=== PATIENT | female | born 1955 | race Caucasian/White ===

== ENCOUNTER → 2016-08-26 | Outpatient (CLI) | payer OTHER | END | disposition home or self-care (01) | LOC: C.LABPBG 11:12 | PROVIDERS: ATTEND Neuromusculoskeletal Medicine & OMM | DX: Z00.00 Encounter for general adult medical examination without abnormal findings (principal) ==

== ENCOUNTER 2019-05-15 07:40 | Observation (INO) ==
--- NOTE | 2019-05-08 15:38 | PAT Medication Instructions ---
Medication Instructions Date of Service May 08, 2019 Home Medications aspirin [Aspirin Low Dose] 81 mg PO QPM atorvastatin 40 mg PO QPM triamcinolone acetonide 1 appln TOPICAL DAILY PRN ASK your prescriber and surgeon aspirin [Aspirin Low Dose] 81 mg PO QPM STOP taking 24 hours before surgery triamcinolone acetonide 1 appln TOPICAL DAILY PRN Take evening before surgery atorvastatin 40 mg PO QPM Other Notes If you have any questions please call us at [phone] or [phone] or [phone] or [phone]
--- NOTE | 2019-05-09 08:23 | Anesthesiology Consultation ---
Date of Service May 09, 2019 Assessment & Plan (1) Encounter for pre-operative examination: Chart Review Chart Review: Acceptable Risk for Surgery and Patient seen in Pre Admission Testing Teaching & Discussion Instructed NPO after midnight before surgery, except medications with 15 cc of water. Medication instructions provided according to the PAT guidelines. History Surgery Operation Date: 05/15/19 07:00 Proposed Procedures p Left Breast Lumpectomy with Needle Localization and Left [place] Lymph Node Biopsy - German Otero MD, FACS Height/Weight Height: 5 ft Weight: 74.9 kg Allergies Allergy/AdvReac Type Severity Reaction Status Date / Time No Known Drug Allergies Allergy Verified 05/03/19 15:18 Medications Home Medications Medication Instructions Recorded Confirmed Last Taken aspirin [Aspirin Low Dose] 81 mg PO QPM 05/03/19 05/03/19 Unknown atorvastatin 40 mg PO QPM 05/03/19 05/03/19 Unknown triamcinolone acetonide 1 appln TOPICAL DAILY PRN 05/03/19 05/03/19 Unknown Past Medical History Medical History (Updated 05/09/19 @ 15:34 by Franki Garcia) Difficulty swallowing pills CRUSHES ALL MEDICATION Eczema Hyperlipidemia Mentally challenged 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 Patient denies medical problems NOTED IN HISTORY HAD AAA REPAIR - SISTER, ANGELICA MARTINEZ, WHO IS POWER GLUING MACHINE ADJUSTER DENIES EVER HAVING ANY ISSUES WITH AORTA Retinitis pigmentosa of right eye Exercise / Class Metabolic Activity II 4-5 Yardwork/Stairs/Walk up hill Past Family History Family History Father Colorectal cancer, Onset Age: 73 Cardiac disorder Hypertension Myocardial infarction Age 75 Stroke Mother , d/t CT age 81 Diabetes Gallbladder disease Lung disease Heart disease Myocardial infarction, Onset Age: 81 Hypertension Sister Breast cancer age 45 Aunt Breast cancer Denies family history of Ovarian cancer Prostate cancer Past Surgical History Surgical History Hx of colonoscopy Past Anesthesia History No Hx of Anesthesia Complications and No Family Hx of Anesthesia Complications History of PONV No Hx of PONV and No Hx of Motion Sickness Social History Smoking Status: Never smoker Do You Dip or Chew Tobacco: No Hx Alcohol Use: No Hx Substance Use: No Review of Systems Pt denies any recent chest pain, shortness of breath, palpitations, cough, fever or URI. Physical Exam Vital Signs BP: 150/83 (pt and her sister report this is high for her, they do take it at home daily and systolic usually 130s) P: 86bpm SPO2: 94% RA T: 97.7 F R: 16 ENMT Mouth: + dentures (partial upper) and + small oral opening; no chipped teeth and no loose teeth Thyromental Distance: > or= 3.5 Finger Breadths (3.5) Mallampati Class: III Neck + short neck and + limited neck extension (mildly) Respiratory normal respiratory effort Auscultation: lungs clear to auscultation bilaterally Cardiovascular Rate/Rhythm: regular rate and regular rhythm Heart Sounds: no murmur Psychiatric Orientation: alert and oriented x 3 Responds to questions appropriately, follows commands. Testing Laboratory Results 05/09/19 08:39 05/09/19 08:34 Electrocardiogram Date: 05/09/19 Findings: + NSR @ (77bpm)
[2019-05-09 10:03] LABS: Basophils # (auto) 0.06 K/uL (0-0.2); Basophils % (auto) 1.1 %; Eosinophils # (auto) 0.17 K/uL (0-0.5); Hematocrit (blood only) 43.4 % (37-47); Hemoglobin 14.6 g/dL (12.0-16.0); Immature Granulocytes # (auto) 0.01 K/uL (0.00-0.02); Immature Granulocytes % (auto) 0.2 %; Lymphocytes % (auto) 19.7 %; Mean Corpuscular Hgb Conc 33.6 g/dL (32-36); Mean Corpuscular Volume 83.1 fL (80-100); Mean Platelet Volume 11.1 fL (7.4-10.4); Monocytes # (auto) 0.46 K/uL (0.11-0.59); Monocytes % (auto) 8.2 %; Neutrophils # (auto) 3.78 K/uL (1.4-6.5); Neutrophils % (auto) 67.8 %; Platelet Count 164 K/uL (130-400); RDW Coefficient of Variation 13.4 % (11.5-14.5); RDW Standard Deviation 40.1 fL (36.4-46.3); Red Blood Count 5.22 M/uL (4.2-5.4); White Blood Count 5.58 K/uL (4.8-10.8)
[2019-05-09 10:08] LABS: BUN Creatinine Ratio 21.3 (10-20); Calcium 9.6 mg/dl (8.5-10.1); Creatinine Clr Calc Pharmacy 76.4 ml/min; Est GFR (African American) 108.1; Est GFR (Non-African American) 93.3; Potassium 4.2 mmol/L (3.5-5.1)
--- NOTE | 2019-05-09 15:00 | Electrocardiogram Report ---
Test Reason : Blood Pressure : / mmHG Vent. Rate : 077 BPM Atrial Rate : 077 BPM P-R Int : 146 ms QRS Dur : 074 ms QT Int : 366 ms P-R-T Axes : 052 077 029 degrees QTc Int : 414 ms Normal sinus rhythm Normal ECG No previous ECGs available Confirmed by Wilfred Martin ([id number]) on 05/09/2019 3:00:11 PM Referred By: German Otero Confirmed By:Kb Martin
[~2019-05-15 07:40] MED LIST: CEFAZOLIN 2000MG 2,000 MG/15 ML SYR IV SCH; LR 15ML/HR IV SCH
[2019-05-15] MEDS ORDERED: fentaNYL citrate 100 MCG/2 ML VIAL ONE ×2 (08:41→10:26)
[2019-05-15] MEDS ORDERED: ePHEDrine sulfate 50 MG/ML AMP IV PRN (09:15)
[2019-05-15] MEDS ORDERED: ONDANSETRON INJ 2 MG/ML 2 ML VIAL IV PRN ×2 (09:15→12:41)
[2019-05-15] MEDS ORDERED: ATROPINE SULFATE 0.1 MG/ML 10ML SYR IV PRN (09:15)
[2019-05-15] MEDS ORDERED: CEFAZOLIN 2,000 MG/15 ML IV PUSH IV ONE (09:32)
[2019-05-15] MEDS ORDERED: BUPIVACAINE 0.5 % 5 MG/1 ML MPF 30ML VIAL ONE (09:35)
[2019-05-15] MEDS ORDERED: METHYLENE BLUE 0.5% 10 ML VIAL ONE (09:35)
--- NOTE | 2019-05-15 09:49 | History & Physical Bridge Note ---
Date of Service May 15, 2019 History & Physical Bridge Note I have examined the patient, reviewed the History & Physical and in the interval since the performance of the History & Physical I have noted the following changes of clinical significance: no changes noted
--- NOTE | 2019-05-15 09:52 | Nuclear Medicine Report ---
LYMPHOSCINTIGRAPHY CLINICAL HISTORY: Left breast cancer. PROCEDURE: Using standard sterile technique, 4 intradermal periareolar and one deep injection of 0.54 3 mCi of Lymphoseek was placed in the left breast. The patient tolerated the procedure well. There we re no immediate complications. The patient was subsequently transported to the surgical suite. No iva ging was obtained at the referring physician's request. IMPRESSION: Injection of 0.543 mCi of Lymphoseek in the left breast. ACT 112: Negative or not required by law. Electronically signed by: Eligio Yip M.D. 05/15/2019 9:51 AM
[2019-05-15] MEDS ORDERED: ONDANSETRON INJ 2 MG/ML 2 ML VIAL ONE (10:29)
[2019-05-15] MEDS ORDERED: PROPOFOL IV EMULSION 10 MG/ML 20 ML VIAL IV ONE (10:29)
[2019-05-15] MEDS ORDERED: DEXAMETHASONE SOD INJ 4 MG/ML VIAL ONE (10:29)
[2019-05-15] MEDS ORDERED: LIDOCAINE HCL 2% 2 ML VIAL/AMP(20MG/ML) INFIL ONE (10:29)
--- NOTE | 2019-05-15 11:03 | Post Operative Brief Note ---
PG Immediate Post Op with CF Date of Surgery May 15, 2019 Pre & Post Diagnosis Operation Date: 05/15/19 10:30 Pre-Op Diagnosis: Invasive Ductal Carcinoma of Left Breast Post-Op Diagnosis: Invasive Ductal Carcinoma of Left Breast I identified the patient and participated in the time-out.: Yes Procedure Operation Date: 05/15/19 10:30 Actual Procedures p Left Breast Lumpectomy with Needle Localization and Left [place] Lymph Node Biopsy(Left) - German Otero MD, FACS Surgeon German Otero MD, FACS Bar Useful Or Busser Rosario Azul Estimated Blood Loss 10 Findings Consistent with Post-Op Diagnosis Specimens Specimen Description: Frozen: 1. left sentinel lymph node Fresh: A. left breast tissue, nipple anterior, long silk lateral, short silk medial B. additional superior deep left breast tissue, long silk lateral, short silk medial, methylene blue is new margine C. additional inferior left breast tissue, long silk lateral, short silk medial, methylene blue is new margine
[2019-05-15] MEDS ORDERED: ACETAMINOPHEN 1,000 MG/100 ML VIAL IV STA (11:13)
--- NOTE | 2019-05-15 11:22 | Operative Report (OR) ---
DATE OF OPERATION: 05/15/2019 NAME OF OPERATION: Left lumpectomy with sentinel lymph node biopsy. PREOPERATIVE DIAGNOSIS: Left breast cancer. POSTOPERATIVE DIAGNOSIS: Same. STAFF SURGEON: German Otero MD CHILDREN'S TUTOR: Arcenio Azul PA-C. ANESTHESIA: General. DESCRIPTION OF PROCEDURE: The patient was brought in the operating room and placed on the operating table in supine position. Her left chest was prepped and draped in usual fashion. Her left arm was extended onto an arm board. Her left axilla was also prepped. My supply assistant helped with prepping, draping, removal of the lymph node and breast tissue and closure of the wounds. Initially, incision was made in the left axilla carrying dissection down using the Neoprobe identifying the sentinel lymph node which was sent for frozen section. The frozen section was negative. During the frozen section, lumpectomy was performed. The patient's tumor was relatively close to the nipple areolar complex. Therefore, an elliptical incision was made around the nipple areolar complex, carrying dissection down widely around the needle which had been placed medial to this area. This tissue was marked with the nipple anterior, needle medial, long silk suture lateral, short silk suture medial. Additional superior tissue was taken as well as inferior tissue was taken in these sites were also taken down deep. The tissue was marked in both specimens long silk suture lateral, short medial with methylene blue on the new margin. Clips were placed at the level of the tumor. The initial specimen was placed into the Faxitron. Images sent to Dr. Kim. We did have the suspicious tissue. At this point the deep tissue was reapproximated using 2-0 plain suture. The sentinel lymph node was negative. The axillary skin reapproximated using 4-0 nylon suture. The breast skin reapproximated using subcuticular 4-0 Monocryl with Steri-Strips. Dressings applied and patient transferred to recovery room in stable condition. I attest to the content of the Intraoperative Record and any orders documented therein. Any exception s are noted below.
[2019-05-15] MEDS: fentaNYL citrate 100 MCG/2 ML VIAL IV PRN ×2 (11:48→11:55)
--- NOTE | 2019-05-15 12:06 | Anesthesiology Progress Note ---
Date of Service May 15, 2019 Anesthesia Post Procedure Vital Signs Vital Signs: Temp Pulse Pulse Resp BP BP Pulse Ox 05/15/19 12:00 85 16 120/63 97 05/15/19 11:50 87 20 106/66 95 05/15/19 11:40 86 20 115/57 L 95 05/15/19 11:30 91 H 16 118/58 L 99 05/15/19 11:20 83 16 116/56 L 99 05/15/19 11:17 97.0 F L 83 16 104/51 L 98 05/15/19 09:21 98.6 F 73 18 157/67 H 95 Pain Intensity Left Chest: Pain Intensity: 6 Transfer of Care Handoff Completed per policy Notes Mental Status: alert / awake / arousable and participated in evaluation Patient Amnestic to Procedure: Yes Nausea / Vomiting: adequately controlled Pain: adequately controlled Airway Patency, RR, SpO2: stable & adequate BP & HR: stable & adequate Hydration State: stable & adequate Anesthetic Complications: no major complications apparent and Pt Satisfied with anesthetic care
[2019-05-15] MEDS ORDERED: ACETAMINOPHEN 325 MG TAB PO PRN (12:41)
[2019-05-15] MEDS ORDERED: MoRPHine SULFATE 2 MG/ML CARP IV PRN ×2 (12:41)
[2019-05-15] MEDS ORDERED: PROMETHAZINE HCL 12.5 MG in SODIUM CHLORIDE 0.9% 50 ML IV PRN (12:41)
[2019-05-15] MEDS ORDERED: HYDROCODONE/ACETAMOPHEN 5/325MG TAB PO PRN ×2 (12:41)
[2019-05-15] MEDS ORDERED: SODIUM CHLORIDE 0.9% 1000ML 1,000 ML IV SCH (13:13)
[2019-05-15] MEDS ORDERED: INFLUENZA ADMINISTRATION CHARGE ONE (13:14)
[2019-05-15] MEDS ORDERED: INFLUENZA VIRUS QUAD VACCINE 0.5 ML SYR IM ONE (13:14)
--- NOTE | 2019-05-15 14:23 | Mammography Report ---
NEEDLE LOCALIZATION LEFT BREAST: 05/15/2019 CLINICAL HISTORY: 63-year-old woman with biopsy-proven infiltrative duct adenocarcinoma in the 11:00/ retroareolar left breast. She presents for preoperative needle and wire localization prior to surgica l excision. COMPARISON: Comparison is made to exams dated: 04/12/2019 ultrasound biopsy, 04/12/2019 ultrasound bio psy, 04/12/2019 ultrasound, 04/12/2019 mammogram - [facility], 03/01/2018 mammogram, and 03/14/2019 mammogram - [facility]. PATIENT CONSENT: The risks of the procedure were explained to the patient and informed consent was ob tained both verbally and in writing. Specific risks include: Bleeding, infection, puncture of adjace nt structure, nontarget localization, sampling error, dizziness/lightheadedness, medication reaction. A timeout was performed of the left breast was confirmed as a site for preoperative localization. PROCEDURE DESCRIPTION: The patient was placed in the supine position with left arm extended. Repeat targeted ultrasound was performed in the 11:30 retroareolar region of the left breast in the area of biopsy-proven carcinoma. An irregular taller than wide hypoechoic mass with associated calcification s is again identified and targeted for preoperative localization. The skin of the left breast was pr epped with Betadine and sterile drapes were placed. 1% buffered Lidocaine without epinephrine was ad ministered as local anesthesia. A 5cm Boyce II needle and wire combination was inserted into the br east, through the mass with associated calcifications. Optimal positioning was confirmed and the wir e was locked in place, leaving both the needle and wire within the breast, as per surgeon's preferenc e. Post ultrasound localization 2D and tomosynthesis mammography was performed which demonstrates th e ribbon-shaped biopsy marker adjacent to the localization needle shelter between the tip and proxima l kal notch. The entire procedure including approach and needle length were discussed with the oper ating surgeon prior to surgery. The patient tolerated the procedure well and there was no immediate complication. She was sent to the operating room in satisfactory condition. A specimen radiograph was performed which demonstrates the localizing needle and wire, spiculated mas s and associated pleomorphic calcifications within the specimen, none of which extend to an edge of t he specimen based on imaging. Final surgical pathology is pending. IMPRESSION: NEEDLE LOCALIZATION Status post preoperative needle and wire localization for biopsy-proven carcinoma in the 11:30/retroa reolar left breast. The imaged specimen includes the intended abnormalities. Final surgical patholo gy is pending. Sadie Kim M.D. ay/:05/15/2019 10:58:00 Classroom Coordinator: RT Russell(Jeannette)(Radha), [facility]
[2019-05-15] MEDS: IBUPROFEN 600 MG TAB PO PRN ×2 (15:31→23:29)
[2019-05-15] MEDS: CEFAZOLIN 1000MG 1,000 MG/7.5 ML SYR IV SCH (18:12)
[2019-05-15] MEDS ORDERED: ATORVASTATIN 40 MG TAB PO SCH (21:00)
[2019-05-16] MEDS: CEFAZOLIN 1000MG 1,000 MG/7.5 ML SYR IV SCH (01:31)
--- NOTE | 2019-05-16 06:29 | Surgery Progress Note ---
Date of Service May 16, 2019 Assessment & Plan (1) Breast cancer: doing well wound stable sister at bedside plan d/c home- visiting nurse she lives with her sister Barbie see in office next week Results & Data Vital Signs (Past 12 Hours) Vital Signs Temp Pulse Resp BP Pulse Ox 05/16/19 03:15 36.7 C 79 16 103/60 92 05/15/19 23:24 36.8 C 90 16 137/66 92 05/15/19 18:47 36.6 C 106 H 16 123/72 92 PG Care Time/CCT Total # of Minutes Spent Total Time Spent with Patient: Total time spent is greater than 50% in coordination of care (as documented) at patient's floor/unit and/or counseling patient: Coding Level of Care Code None Diagnoses Breast cancer C50.919
[2019-05-16 07:40] VITALS: BP 96/57; PULSE 72; TEMP 97.7; O2SAT 91
--- NOTE | 2019-05-16 08:00 | Anesthesiology Progress Note ---
Date of Service May 16, 2019 Anesthesia Post Procedure Vital Signs Vital Signs: Temp Pulse Pulse Pulse Resp BP BP 05/16/19 07:39 36.5 C 72 17 96/57 L 05/16/19 03:15 36.7 C 79 16 103/60 05/15/19 23:24 36.8 C 90 16 137/66 05/15/19 18:47 36.6 C 106 H 16 123/72 05/15/19 15:30 36.8 C 107 H 20 159/77 H 05/15/19 14:28 36.8 C 100 H 20 117/71 05/15/19 13:26 18 114/70 05/15/19 12:57 36.3 C L 17 118/57 L 05/15/19 12:30 36.5 C 16 106/64 05/15/19 12:15 36.4 C L 82 19 105/62 05/15/19 12:00 85 16 120/63 05/15/19 11:50 87 20 106/66 05/15/19 11:40 86 20 115/57 L 05/15/19 11:30 91 H 16 118/58 L 05/15/19 11:20 83 16 116/56 L 05/15/19 11:17 36.1 C L 83 16 104/51 L 05/15/19 09:21 37 C 73 18 157/67 H Pulse Ox 05/16/19 07:39 91 05/16/19 03:15 92 05/15/19 23:24 92 05/15/19 18:47 92 05/15/19 15:30 93 05/15/19 14:28 92 05/15/19 13:26 94 05/15/19 12:57 95 05/15/19 12:30 94 05/15/19 12:15 99 05/15/19 12:00 97 05/15/19 11:50 95 05/15/19 11:40 95 05/15/19 11:30 99 05/15/19 11:20 99 05/15/19 11:17 98 05/15/19 09:21 95 Pain Intensity Left Chest: Pain Intensity: 4 Notes Mental Status: alert / awake / arousable and participated in evaluation Patient Amnestic to Procedure: Yes Nausea / Vomiting: adequately controlled Pain: adequately controlled Airway Patency, RR, SpO2: stable & adequate BP & HR: stable & adequate Hydration State: stable & adequate Anesthetic Complications: no major complications apparent and Pt Satisfied with anesthetic care
--- NOTE | 2019-05-18 09:35 | Discharge Summary ---
Date of Service May 18, 2019 Principal Diagnosis Left breast cancer Discharge Exam Chest (Breasts) Additional Comments: incisions clean, dry Discharge Data Allergies Allergy/AdvReac Type Severity Reaction Status Date / Time No Known Drug Allergies Allergy Verified 05/15/19 09:19 Consultations 05/16/19 06:00 Consult Case Management - Discharge Planning Routine Procedures Performed Operation Date: 05/15/19 10:30 Actual Procedures p Left Breast Lumpectomy with Needle Localization and Left [place] Lymph Node Biopsy(Left) - German Otero MD, FACS Ordered Studies 05/15/19 breast needle loc LT Routine Hospital Course (1) Breast cancer: 63 y/o female with left breast cancer was taken to the operating room for lumpectomy and sentinel lymph node biopsy following needle localization. The procedure was well tolerated, she was observed overnight on the surgical floor. She was doing well the next morning and was stable for discharge home with the assistance of her sister. Total Time Total Time Spent Total Time Spent (In Minutes): 10 Discharge Plan Discharge Items Patient Disposition: Home - Self-Care Reason For Visit: LT BREAST INFLITRATIVE ADENOCA W/HOSP LOC & NM INJ Discharge Diagnosis: Lt breast cancer Activity: As commented below Activity Comment: light activity for 4 weeks Lifting: No more than 10 pounds Bathing Comment: may shower Exercise Comment: wait 4 weeks Non-emergency contact: Primary Care Provider and Surgeon Call non-emergency contact if: your pain is not controlled, your temperature is above 101 and your wound has increased drainage Follow-up/Referrals: Daina Watters DO [Primary Care Provider] - 05/23/19 9:30 am Diet: Regular Addtl Attending Provider Instructions: SPECIAL CARE INSTRUCTIONS: * Cover incisions and change daily for comfort/drainage. * Leave steri strips in place * May use ibuprofen for pain as tolerated. * Expect some swelling and bruising. Call your doctor if: * Temperature above 101 degrees * Pain not relieved by pain medicine ordered * There is increased drainage or redness from any incision * You have any unanswered questions or concerns [phone]. FOLLOW UP VISIT: If not already scheduled, please call the office for a follow-up visit. OFFICE PHONE NUMBER: Dr. Otero Office for next week- suture removal Pending Studies at Discharge: No Stand-Alone Forms: [employer] Smoking Cessation Medications and DC Order Prescriptions: New hydrocodone-acetaminophen [[place]] 5-325 mg tablet 1 - 2 tab PO Q6H PRN (Reason: pain) Qty: 20 RF: 0 Continued aspirin [Aspirin Low Dose] 81 mg Tablet,Delayed Release (Dr/Ec) 81 mg PO QPM RF: 0 atorvastatin 40 mg tablet 40 mg PO QPM RF: 0 triamcinolone acetonide 0.1 % cream 1 appln topical DAILY PRN (Reason: SKIN ISSUES) RF: 0 Discharge Orders: Discharge Order (Routine); Ordered 05/16/19 Ordered By: German Otero Admission Data Admit Date/Time: 05/15/19 11:05 Attending Provider: German Otero Admit Provider: German Otero Primary Care Provider: Daina Watters Other Interventions: Discharge Summary Assessment (RN) Last Done: 05/16/19 08:11 DC Date/Time DO NOT enter until pt leaves facility: 05/16/19 09:20 Coding Level of Care Code D/C Day Management <30 mins Diagnoses Breast cancer C50.919
== END 2019-05-16 09:20 | disposition home or self-care (01) ==
LOC: 3W 07:40 → ASU 07:40